=== PATIENT | male | born 1990 | race African-American/Black ===

== ENCOUNTER 2017-01-23 22:33 | Emergency (ER) | payer OTHER ==
[~2017-01-23] VITALS: Ht 172.7 cm; Wt 100.0 kg
[2017-01-24] MEDS ORDERED: COLA100C5 PO (00:44)
[2017-01-24] MEDS ORDERED: BACT800T5 PO (00:44)
[2017-01-24] MEDS ORDERED: BACTRIM 160MG/800MG DS TAB PO ONE (00:45)
[2017-01-24 00:51] VITALS: BP 134/81
== END 2017-01-24 00:52 | disposition home or self-care (01) ==
LOC: M ED 22:33
DX: R22.2 Localized swelling, mass and lump, trunk (principal); Z87.438 Personal history of other diseases of male genital organs